=== PATIENT | male | born 1985 | race Caucasian/White ===

== ENCOUNTER 2022-07-07 07:00 | Emergency (ER) | payer BC, OTHER ==
[2022-07-07] MEDS ORDERED: Acetaminophen/HYDROcodone 325-5 MG Tab PO ONE (07:46)
== END 2022-07-07 11:31 | disposition home or self-care (01) ==
LOC: JD.ED 07:00
DX: S82.52XA Displaced fracture of medial malleolus of left tibia, initial encounter for closed fracture (principal); E66.9 Obesity, unspecified; Z68.39 Body mass index [BMI] 39.0-39.9, adult; W00.0XXA Fall on same level due to ice and snow, initial encounter; Y92.009 Unspecified place in unspecified non-institutional (private) residence as the place of occurrence of the external cause
CPT/HCPCS: 29515; 73610; 99283; A9270; 99284

== ENCOUNTER 2022-07-21 09:45 | Day surgery (SDC) | payer BC ==
[~2022-07-21 09:45] MED LIST: Dexmedetomidine 200 MCG/2 ML SDV ONE; Lidocaine 1%/Sod Bicarbonate in NS 8.4% 1 ML Syringe IDERM PRN; Ropivacaine 0.5% 5 MG/ML 30 ML SDV ONE; Sodium Chloride 0.9% 10 ML Syringe FLUSH PRN; Sodium Chloride 0.9% 10 ML Syringe FLUSH SCH; ceFAZolin 2 GM Vial ONE
[2022-07-21] MEDS ORDERED: Dexamethasone 4 MG/ML 5 ML MDV ONE (09:52)
[2022-07-21] MEDS ORDERED: Lidocaine 1% 6 ML ONE (09:55)
[2022-07-21] MEDS: Lactated Ringers 1,000 ML IV SCH ×2 (10:05→13:29)
[2022-07-21] MEDS ORDERED: fentaNYL 100 MCG/2 ML SDV ONE ×2 (10:18→12:15)
[2022-07-21] MEDS ORDERED: Midazolam 1 MG/ML 2 ML SDV ONE (10:19)
[2022-07-21] MEDS ORDERED: Propofol 200 MG/20 ML SDV ONE (10:27)
[2022-07-21] MEDS ORDERED: EPINEPHrine 1 MG/ML SDV ONE (11:06)
[2022-07-21] MEDS ORDERED: Ketamine 500 mg/10 ML MDV ONE (11:27)
[2022-07-21] MEDS ORDERED: ceFAZolin 2 GM Vial ONE (11:32)
[2022-07-21] MEDS ORDERED: Bupivacaine 0.25% 10 ML SDV ONE (12:04)
[2022-07-21] MEDS ORDERED: Ondansetron 4 MG/2 ML SDV ONE (12:26)
[2022-07-21] MEDS ORDERED: Metoclopramide 10 MG/2 ML SDV ONE (12:30)
[2022-07-21] MEDS ORDERED: HYDROmorphone 0.5 MG/0.5 ML Syringe IVPUSH PRN (12:34)
[2022-07-21] MEDS ORDERED: fentaNYL 100 MCG/2 ML SDV IVPUSH PRN (12:34)
== END 2022-07-21 15:50 | disposition home or self-care (01) ==
LOC: JD.SDS 09:45
PROVIDERS: ATTEND Orthopaedic Surgery
DX: S82.842A Displaced bimalleolar fracture of left lower leg, initial encounter for closed fracture (principal); K21.9 Gastro-esophageal reflux disease without esophagitis; Z98.818 Other dental procedure status; Z95.1 Presence of aortocoronary bypass graft; Z82.49 Family history of ischemic heart disease and other diseases of the circulatory system; X58.XXXA Exposure to other specified factors, initial encounter
CPT/HCPCS: 27814; 27829; 76000; C1713; J0171; J0690; J1100; J2250; J2405; J2704; J2765; J2795; J3010; J3490; J7120; 01480; 64450